=== PATIENT | female | born 1960 | race Caucasian/White ===

== ENCOUNTER → 2019-06-14 | Outpatient (CLI) | payer BC ==
--- NOTE | 2019-06-15 15:27 | MR ---
EXAMINATION TYPE: MR knee RT wo con DATE OF EXAM: 06/14/2019 COMPARISON: None HISTORY: Pain in right knee TECHNIQUE: Multiplanar, multisequence imaging of the right knee is performed without IV contrast. FINDINGS: There is a mild knee joint effusion. Anterior and posterior cruciate ligaments are intact. The latera l meniscus is intact. There is very slight increased signal in the posterior horn of the medial menis cus without extension to the articular surface. The collateral ligaments are intact. There is no evidence of a fracture. Joint spaces are fairly norm al. IMPRESSION: Minimal degenerative signal change in the posterior horn medial meniscus without a complete tear. Sma ll knee joint effusion. No ligamentous tear.
== END | disposition home or self-care (01) ==
LOC: RADMRIMAIN 12:39
PROVIDERS: ATTEND Orthopaedic Surgery
DX: M23.321 Other meniscus derangements, posterior horn of medial meniscus, right knee (principal); M25.461 Effusion, right knee